=== PATIENT | female | born 1970 | race Caucasian/White ===

== ENCOUNTER 2018-02-24 17:42 | Emergency (ER) | payer OTHER ==
[2018-02-24 20:08] VITALS: BP 107/75
--- NOTE | 2018-02-24 20:41 | ED ---
Michelle Black Rebecca, scribed for Andrea Sanchez MD on 02/24/18 at 1843 . Substance Abuse/Use - HPI Summary HPI Summary: Pt is a 47 y/o F BIBA who presents to ED s/p OD of Percocet. She was found unresponsive on the floor by EMS and was given 2mg Narcan. Pt states that she has been on Percocet for a few years to treat chronic back pain and mixed it with Ativan today, unaware that she shouldn't do so. States "I took more than I should have I guess" stating that she has been in more pain than usual. Incident occurred while at home, alone, putting in her contacts. Reports LOC and that she hit the R side of her forehead. She was found by her who called EMS. Per nurse's triage, she denies SI. - History Of Current Complaint Chief Complaint: EDSubstanceAbuse Stated Complaint: OVERDOSE Time Seen by Provider: 02/24/18 18:35 Hx Obtained From: Patient Ingestion History: Type/Name Of Drug - Percocet Overdose Characteristics: Oral Severity Currently: None Aggravating Factor(s): Nothing Alleviating Factor(s): Medication - Narcan Associated Signs And Symptoms: Other: - LOC - Allergies/Home Medications Allergies/Adverse Reactions: Allergies Allergy/AdvReac Type Severity Reaction Status Date / Time No Known Allergies Allergy Verified 02/24/18 18:24 Home Medications: Home Medications Ibuprofen TAB* [Motrin TAB* 600 MG] 600 mg PO Q6H PRN 02/24/18 [History Confirmed 02/24/18] LORazepam TAB(*) [Ativan 0.5 MG TAB (*)] 0.5 mg PO TID PRN 02/24/18 [History Confirmed 02/24/18] Lisinopril 40 mg PO DAILY 02/24/18 [History Confirmed 02/24/18] Metoprolol Tartrate TAB* [Lopressor TAB*] 25 mg PO BID WITH MEALS 02/24/18 [ History Confirmed 02/24/18] oxyCODONE/Acetamin 10/325(NF) [Percocet 10/325 (NF)] 1 tab PO Q6HR PRN 02/24/18 [History Confirmed 02/24/18] PMH/Surg Hx/FS Hx/Imm Hx Endocrine/Hematology History: Denies: Hx Diabetes Cardiovascular History: Denies: Hx Hypertension, Hx Pacemaker/ICD Sensory History: Denies: Hx Hearing Aid Psychiatric History: Denies: Hx Panic Disorder - Cancer History Hx Chemotherapy: No Hx Radiation Therapy: No Infectious Disease History: No Infectious Disease History: Denies: Traveled Outside the [place] in Last 30 Days - Family History Known Family History: Positive: Hypertension - Social History Alcohol Use: Weekly Substance Use Type: Reports: Marijuana, Prescribed Smoking Status (MU): Current Every Day Smoker Review of Systems Positive: Other - R forehead trauma Neurological: Other - LOC Positive: Other - Overdose on Percocet; NEGATIVE: SIs All Other Systems Reviewed And Are Negative: Yes Physical Exam - Summary Physical Exam Summary: Appearance: The patient is well-nourished in no acute distress and in no acute pain. Skin: The skin is warm and dry and skin color reflects adequate perfusion. HEENT: Erythema on the right side of the forehead and in the infraorbital area. The pupils are equal and reactive. The conjunctivae are clear and without drainage. Nares are patent and without drainage. Mouth reveals moist mucous membranes and the throat is without erythema and exudate. The external ears are intact. The ear canals are patent and without drainage. The tympanic membranes are intact. Neck: The neck is supple with full range of motion and non-tender. There are no carotid bruits. There is no neck vein distension. Respiratory: Chest is non-tender. Lungs are clear to auscultation and breath sounds are symmetrical and equal. Cardiovascular: Heart is regular rate and rhythm. There is no murmur or rub auscultated. There is no peripheral edema and pulses are symmetrical and equal. Abdomen: The abdomen is soft and non-tender. There are normal bowel sounds heard in all four quadrants and there is no organomegaly palpated. Musculoskeletal: There is no back tenderness noted. Extremities are non-tender with full range of motion. There is good capillary refill. There is no peripheral edema or calf tenderness elicited. Neurological: Patient is alert and oriented to person, place and time. The patient has symmetrical motor strength in all four extremities. Cranial nerves are grossly intact. Deep tendon reflexes are symmetrical and equal in all four extremities. Psychiatric: The patient has an appropriate affect and does not exhibit any anxiety or depression. Triage Information Reviewed: Yes Vital Signs On Initial Exam: Initial Vitals Temp Pulse Resp BP Pulse Ox 97.3 F 77 15 104/65 100 02/24/18 18:18 02/24/18 18:18 02/24/18 18:18 02/24/18 18:18 02/24/18 18:18 Vital Signs Reviewed: Yes Diagnostics - Vital Signs Vital Signs Temp Pulse Resp BP Pulse Ox 02/24/18 18:18 97.3 F 77 15 104/65 100 - Laboratory Lab Statement: Any lab studies that have been ordered have been reviewed, and results considered in the medical decision making process. Re-Evaluation - Re-Evaluation First Eval Re-Evaluation Time: 19:33 Comment: Pt continues to be awake. Course/Dx - Course Course Of Treatment: Ms. Anand admits to having taking too much of her Percocet today. She was in the bathroom trying to put her contacts in when she apparently lost consciousness. Her came home from work and had to break into the house and found her unresponsive in the bathroom with ragged breathing. EMS was called and administered Narcan to which she woke up. She reports no complaint when I see her aside from some slight tenderness to her right side forehead. She is a little red there. We watched her for a couple of hours and she remained awake with normal vitals and no complaints. I warned her about taking her medications as prescribed only. - Diagnoses Provider Diagnoses: Opiate overdose Discharge - Sign-Out/Discharge Documenting (check all that apply): Discharge/Admit/Transfer - Discharge - Discharge Plan Condition: Stable Disposition: HOME Patient Education Materials: Opioid Overdose (ED) Referrals: Rubina Ortiz [Primary Care Provider] - 3 Days Additional Instructions: RETURN TO ED FOR ANY NEW OR WORSENING SYMPTOMS. - Billing Disposition and Condition Condition: STABLE Disposition: Home The documentation as recorded by the Michelle barron Rebecca accurately reflects the service I personally performed and the decisions made by me, Andrea Sanchez MD.
== END 2018-02-24 20:05 | disposition home or self-care (01) ==
LOC: ED 17:42
DX: T40.2X1A Poisoning by other opioids, accidental (unintentional), initial encounter (principal); R40.20 Unspecified coma; Y92.009 Unspecified place in unspecified non-institutional (private) residence as the place of occurrence of the external cause; Z82.49 Family history of ischemic heart disease and other diseases of the circulatory system; Z72.0 Tobacco use
CPT/HCPCS: 99281; 99283